=== PATIENT | female | born 1985 | race African-American/Black ===

== ENCOUNTER 2019-08-07 23:16 | Emergency (ER) | payer OTHER ==
[~2019-08-07] VITALS: Ht 172.7 cm; Wt 90.9 kg
[2019-08-07 23:41] VITALS: BP 158/66
--- NOTE | 2019-08-07 23:43 | PHYS DOC ---
Past Medical History Attending Signature I have participated in the care of this patient and I have reviewed and agree with all pertinent clinical information above including history, exam, and recommendations. (CYNTHIA RDZ MD) Adult General Chief Complaint Chief Complaint: VAGINAL PROBLEM [facility] HPI Patient is a 34 year old female who presents with vaginal burning and blisters that started today. The patient that she is having difficulty with sitting down due to the pain. Denies any history of this. Complete ROS were reviewed and found to be within normal limits, except as documented in the HPI (MIKEL MORRISON APRN) Physical Exam Physical Exam Constitutional: Well developed, well nourished, no acute distress, non-toxic appearance. [] HENT: Normocephalic, atraumatic, Neurologic: Alert and oriented X 3, Psychologic: Affect normal, judgement normal, mood normal. [] (MIKEL MORRISON APRN) Current Patient Data Vital Signs Vital Signs Date Time Temp Pulse Resp B/P (MAP) Pulse Ox O2 Delivery O2 Flow Rate FiO2 08/07/19 23:41 98.6 77 16 158/66 (96) 100 Room Air 98.6 (CYNTHIA RDZ MD) EKG EKG [] (MIKEL MORRSION APRN) Radiology/Procedures Radiology/Procedures [] (MIKEL MORRISON APRN) Course & Med Decision Making Course & Med Decision Making Pertinent Labs and Imaging studies reviewed. (See chart for details) A medical screening exam was performed on this patient and the patient does not appear to be having a medical emergency. Her symptoms are not of sufficient severity and within reasonable medical probability it is unlikely the absence of immediate medical attention would result in placing the health of the individual (or, with respect to a woman, the health of the woman or her unborn child) in serious jeopardy, serious impairment to bodily functions, or serious dysfunction of any bodily organ or part. If , the patient is not in labor I discussed with the patient that during a pandemic this to be a more appropriate visit for [employer] or department of health however likely from what she describes this is herpes. Will place on Acyclovir 400 mg TID for 10 days and have follow up with [employer] for additional testing. (MIKEL MORRISON APRN) Dragon Disclaimer Dragon Disclaimer This electronic medical record was generated, in whole or in part, using a voice recognition dictation system. (MIKEL MORRISON APRN) Departure Departure Impression: Primary Impression: Blister (nonthermal) of vagina and vulva, initial encounter Disposition: HOME, SELF-CARE Condition: STABLE Referrals: NO PCP (PCP) ALFA CAVANAUGH MD Additional Instructions: Thank you for visiting [facility]. We appreciate you trusting us with your care. If any additional problems come up don't hesitate to return to visit us. Please follow up with your primary care provider so they can plan additional care if needed and know about the problem that you had. If symptoms worsen come back to the Emergency Department. Any concerning symptoms that start such as chest pain, shortness of air, weakness or numbness on one side of the body, running high fevers or any other concerning symptoms return to the ER. Please follow-up with an [employer]. Scripts Acyclovir (ACYCLOVIR) 400 Mg Tablet 1 TAB PO TID for 10 Days, #30 TAB Prov: MIKEL MORRISON APRN 08/07/19 MIKEL MORRISON APRN Aug 07, 2019 23:43 CYNTHIA RDZ MD Aug 08, 2019 01:33
[2019-08-07] MEDS ORDERED: ACYC400T PO (23:57)
== END 2019-08-08 00:08 | disposition home or self-care (01) ==
LOC: ER 23:16
DX: T28.3XXA Burn of internal genitourinary organs, initial encounter (principal); X08.8XXA Exposure to other specified smoke, fire and flames, initial encounter; Y93.89 Activity, other specified; Y92.89 Other specified places as the place of occurrence of the external cause; Y99.8 Other external cause status
CPT/HCPCS: 99283